=== PATIENT | male | born 1980 | race Caucasian/White ===

== ENCOUNTER 2016-09-18 01:48 | Day surgery (SDC) | payer OTHER ==
[~2016-09-18] VITALS: Ht 172.7 cm; Wt 140.7 kg
[2016-09-18] VITALS (17 sets, daily range): BP systolic 109–140; BP diastolic 47–73; PULSE 54–73; RESP 12–22; O2SAT 88–99
[~2016-09-18 01:48] MED LIST: HYG25 PO; LISI-571 PO; METO-272 PO; RIVA20TA PO
[2016-09-18] MEDS ORDERED: Succinylcholine Chloride 20 mg/mL 5 mL Inj ONE (01:49)
[2016-09-18] MEDS ORDERED: Protamine Sulfate 10 mg/mL 5 mL Inj ONE ×2 (01:49→15:49)
[2016-09-18] MEDS ORDERED: Neostigmine 1 mg/mL 10 mL Inj ONE (01:49)
[2016-09-18] MEDS ORDERED: Rocuronium 10 mg/mL 5 mL Inj ONE (01:49)
[2016-09-18] MEDS ORDERED: fentaNYL-PF 50 mCg/mL 2 mL Inj ONE (01:49)
[2016-09-18] MEDS ORDERED: Glycopyrrolate 0.2 MG/ML 1mL Inj ONE (01:49)
[2016-09-18] MEDS ORDERED: Ondansetron 2 mg/mL 2 mL Inj ONE (01:49)
[2016-09-18] MEDS ORDERED: EPHEDrine/NS 5 mg/mL 5 mL Syringe ONE (01:49)
[2016-09-18] MEDS ORDERED: Propofol 10,000 mCg/mL 20 mL Inj ONE (01:49)
[2016-09-18] MEDS ORDERED: Dexamethasone 4 mg/mL Inj ONE (01:49)
[2016-09-18] MEDS ORDERED: Lactated Ringer's 1,000 ML IV SCH (05:00)
[2016-09-18] MEDS ORDERED: Benzoc-Butamben-Tetraca Spray 20 Gm Spray TOPICAL PRN (07:15)
[2016-09-18 11:10] LABS: BASOPHILS % (AUTO) 0.4 % (0-3); EOSINOPHILS % (AUTO) 1.5 % (0-5); MONOCYTES % (AUTO) 7.5 % (4-12); Mean Corpuscular Hemoglobin 29.1 pg (27.0-35.0); Mean Corpuscular Volume 85.1 fL (81-100); NEUTROPHILS % (AUTO) 66.7 % (40-74); Platelet Count 198 bil/L (150-400)
--- NOTE | 2016-09-18 11:53 | NUR ---
ORACIO Admit to [facility] bed #7 at 1100 AM for NORRIS/Ablation. Father at bedside. Patient denies pain. HL X 2 placed and labs drawn. ECG 12 complete. Consent confirmed. History and medications reviewed. Patient states he took medications at 0700 with 1-2 ounces milk. MD and anesthesia notified. Pre-procedure teaching done and questions answered.
[2016-09-18] MEDS ORDERED: 0.9% Sodium Chloride 2,000 ML ONE (12:28)
[2016-09-18] MEDS ORDERED: Heparin 1,000 Unit/mL 10 mL Inj ONE ×2 (12:28→15:08)
[2016-09-18] MEDS ORDERED: Heparin 25,000 Unit/500 mL 0.45% NS Premix IV ONE (12:36)
[2016-09-18] MEDS ORDERED: Heparin 1,000 Units/500 mL NS Premix IV ONE ×2 (12:45→14:48)
[2016-09-18] MEDS ORDERED: Heparin 10,000 Unit/1,000 mL NS Premix IV ONE (13:37)
--- NOTE | 2016-09-18 15:16 | DRSVH ---
[facility] [address] [place] [address] Echocardiogram Report Name: CHRISTOPHER FOSTER Study Date: 09/18/2016 Height: 68 in Hospital Exam Location: [facility] Weight: 301 lb Gender: Male BSA: 2.4 m2 : 1980 Age: 35 yrs BP: 144/69 mmHg Reason For Study: Atiral Fibrillation Ordering Physician: Dr. Quoc Lucero Performed By: Zainab Godoy Referring Physician: GERARDO LUCERO Interpretation Summary The left ventricular ejection fraction is normal. No thrombus is detected in the left atrial appendage. There is trace mitral regurgitation. The aortic valve is trileaflet. The tricuspid valve is normal in structure and function. Procedure: A multifrequency, multiplane transesopheageal echocardiographic endoscope was inserted and manipulated in the standard fashion to achieve multiplane views. There were no complications. Left Ventricle: The left ventricular ejection fraction is normal. Atria: No thrombus is detected in the left atrial appendage. The interatrial septum is intact with no evidence for an atrial septal defect. Mitral Valve: The mitral valve is normal in structure and function. There is trace mitral regurgitation. Aortic Valve: The aortic valve is trileaflet. The aortic valve opens well. No aortic regurgitation is present. Tricuspid Valve: The tricuspid valve is normal in structure and function. There is trace tricuspid regurgitation. Pulmonic Valve: The pulmonic valve is normal in structure and function. There is trace pulmonic regurgitation. Electronically signed by: Weston Ace on Reading Physician:09/18/2016 03:15 PM
[2016-09-18] MEDS ORDERED: HYDROcodone-APAP 5-325 mg Tablet PO PRN (16:05)
[2016-09-18] MEDS ORDERED: Ondansetron 2 mg/mL 2 mL Inj IVPUSH PRN (16:05)
--- NOTE | 2016-09-18 16:07 | PCM.HPANE ---
Patient Data Date of Service: Sep 18, 2016 (1965) Surgeon Admitting Provider: Attending Provider:Enoc Lucero MD Primary Care Physician:Tere Other Provider:Michael Sol Anesthesia Reason for Visit A FIB Ht/WT & BMI Height (Feet): 5 Height (Inches): 8.00 Weight (Kilograms): 135.000 Body Mass Index 45.11 Allergies Coded Allergies: No Known Allergies (Unverified , 12/28/14) Past Anesthesia History Anesthesia History: Denies:: Abnormal Airway, Anesthesia Reactions, Difficult Intubation Diabetes History Hx Diabetes?: No MRSA MRSA: No Medications Reported Medications Rivaroxaban (Xarelto)20 Mg Vktiez73 Mg PO DAILY 09/17/16 Metoprolol Succinate ER 50 Mg Tab.er.24h50 Mg PO DAILY Ref 0 12/27/14 Lisinopril 5 Mg Tablet5 Mg PO DAILY #30 TABLET Ref 0 12/27/14 Chlorthalidone 25 Mg Stgzjr64 Mg PO DAILY #30 TABLET 12/27/14 Discontinued Reported Medications Dabigatran Etexilate Mesylate (Pradaxa)150 Mg Rwyykxh705 Mg PO BID 30 Days 12/27/14 Discontinued Scripts Flecainide Acetate 50 Mg Rvklow48 Mg PO BID #60 TABLET Ref 5 Prov:Delfino Miller PA-C 12/29/14 Omeprazole 40 Mg Capsule.dr40 Mg PO DAILY #30 CAPSULE Ref 0 Prov:Delfino Miller PA-C 12/29/14 History History of ENT Problems?: No HEENT History: Denies:: Abnormal Airway Difficult Intubation Denture Type: None Teeth Condition: Within Normal Limits Hx of Heart Problems?: Yes Cardiovascular History: Positive for:: Cardiac Surgery (ablation Dec 2013) Chest Pain (rare) Hypertension Irregular Heartbeat (paroxysmal atrial fibrillation) Denies:: AICD Abdominal Aortic Aneurism Atrial Fibrillation Congestive Heart Failure Coronary Artery Disease Edema Heart Murmur Pacemaker Peripheral Vascular Rheumatic Fever Thrombophlebitis Valvular Heart Disease Hx of Respiratory Problem?: Yes Respiratory History: Positive for:: Use of C-PAP Machine Denies:: Asthma COPD Chest Surgery Cough Dyspnea Emphysema Hemoptysis Oxygen Administration Pneumonia Pulmonary Embolism Tuberculosis Use of Inhalers / NEBS Hx Neurologic Problems?: No Hx of GI Problems?: No Hx of Problems?: No Male Hx: Denies:: Prostate Problems Hx Musculoskeletal Problems?: No Musculoskeletal History: Positive for:: Back Injury (low back spinal stenosis) Hx of Psycho/Social Problems?: No Hx Surgeries?: No ( ) Hx Any Other Health Problems?: Yes Other History: Positive for:: Hospitalization (GI bleed) Denies:: Cancer Thyroid Disease History Blood Transfusions: Positive for:: Accept Blood Products? Denies:: Blood Transfusions Hx Diabetes: No Hx Alcohol Use: NoHx Substance Use: No Smoking Status: Never Smoker Have You Smoked inLast 12 mo: No Stop/Bang Risk Assessment Category Category 1A: Patient has history of documented sleep apnea, and HAS NOT received any narcotic, sedative or anesthesia administration during this stay. Category 1B: Patient has history of documented sleep apnea, and HAS received any narcotic , sedative or anesthesia administration during this stay Category 2: Patient has SUSPECTED Obstructive Sleep Apnea, and HAS received any narcotic , sedative or anesthesia administration during this stay. Category 3: Patient has SUSPECTED Obstructive Sleep Apnea and HAS NOT received narcotic, sedative or anesthesia administration during this stay. Category 4: Outpatient in Procedural Areas with known sleep apnea or who screen positive for High Risk via the STOP/BANG questionnaire. Exam Exam Vital Signs Vital Signs Date Time Temp Pulse Resp B/P Pulse Ox O2 Delivery O2 Flow Rate FiO2 09/18/16 11:32 59 16 136/73 09/18/16 11:13 36.8 59 16 136/73 99 Room Air General Appearance: Alert, Oriented X3, Cooperative, No Acute Distress HEENT/AIRWAY: MP 3 Lungs: Clear to Auscultation Heart: Exam Unremarkable Meds/Labs/Diagnostics Labs Test 09/18/16 10:59 09/18/16 11:07 Sodium Level 139mEq/L (134-144) Potassium Level 3.9mEq/L (3.5-5.2) Chloride Level 100mEq/L (97-108) Carbon Dioxide Level 25mmol/L (18-29) Blood Urea Nitrogen 21mg/dL (6-20) Creatinine 0.68mg/dL (0.76-1.27) Estimat Glomerular Filtration Rate 143mL/min (>59) Glucose Level 99mg/dL (60-99) Calcium Level 9.7mg/dL (8.5-10.1) White Blood Count 6.8th/mm3 (3.8-10.1) Red Blood Count 4.78mil/mm3 (4.40-5.80) Hemoglobin 13.9g/dL (13.8-17.2) Hematocrit 40.7% (41.0-50.0) Mean Corpuscular Volume 85.1fL (81-100) Mean Corpuscular Hemoglobin 29.1pg (27.0-35.0) Mean Corpuscular Hemoglobin Concent 34.2% (32.0-37.0) Red Cell Distribution Width 12.9% (12.3-15.4) Platelet Count 198bil/L (150-400) Neutrophils (%) (Auto) 66.7% (40-74) Lymphocytes (%) (Auto) 23.6% (14-46) Monocytes (%) (Auto) 7.5% (4-12) Eosinophils (%) (Auto) 1.5% (0-5) Basophils (%) (Auto) 0.4% (0-3) Prothrombin Time 10.7sec (8.1-12.5) Prothromb Time International Ratio 1.00ratio Plan Impression Patient chart reviewed, patient interviewed and anesthestic plan with risks, benefits, and alternatives discussed, and informed consent obtained. ASA Physical Status: ASA3 Severe Disease Anesthetic Support Modalities: Arterial Line Anesthetic Plan: GA Bene/Risks/Altern/Consents: Yes HP Complete Prior to Induction: Yes Sundar Garcia MD Sep 18, 2016 16:07
--- NOTE | 2016-09-18 16:48 | PCM.ANEP1 ---
Post Anesthesia PACU Phase 1 Assessment Vital Signs Vital Signs Date Time Temp Pulse Resp B/P Pulse Ox O2 Delivery O2 Flow Rate FiO2 09/18/16 16:45 70 18 140/68 94 Nasal Cannula 2.00 09/18/16 16:40 36.9 73 12 127/64 99 simple 15.00 09/18/16 11:32 59 16 136/73 09/18/16 11:13 36.8 59 16 136/73 99 Room Air Anesthetic Administered: GA Level of Alertness: Sleepy, easy to arouse Pain: No Nausea or Vomiting: No CV Function & Hydration Stable: Yes Airway Device: Oxygen Delivery: Room Air Lungs: Clear to Auscultation Dermatome Level: Full Sensation PACU Phase 2 Assessment Complications: No Patient Instructions Provided: N/A Sundar Garcia MD Sep 18, 2016 16:48
--- NOTE | 2016-09-18 17:02 | PROCED ---
[address] [address] PROCEDURE NOTE PATIENT: CHRISTOPHER FOSTER : 1980 MR#: [id number] ADMIT: 09/18/2016 JOB ID: [id number] DATE OF SERVICE: 09/18/2016 PREOPERATIVE DIAGNOSIS(ES): Paroxysmal drug refractory atrial fibrillation. POSTOPERATIVE DIAGNOSIS(ES): Paroxysmal drug refractory atrial fibrillation. PROCEDURES PERFORMED: 1. Comprehensive electrophysiology study. 2. Three-dimensional electroanatomic mapping using the CARTO 3 system. 3. Intracardiac echocardiography. 4. Transseptal puncture x2. 5. Atrial fibrillation ablation with pulmonary vein isolation. 6. Barium esophagram. 7. Fluoroscopy. SURGEON: Locate Technician: Enoc Lucero MD, electrophysiology attending. ASSISTANTS: Delfino Miller PA-C, Fernandez Gil. ANESTHESIA: General endotracheal anesthesia was undertaken for this case. INDICATION: The patient is a pleasant 35-year-old man with a structurally normal heart who has undergone atrial fibrillation ablation two years ago for drug-refractory atrial fibrillation. He had recurrence recently and has required cardioversion. After discussion of the risks and benefits of catheter based mapping and ablation, he opted to proceed. PROCEDURAL DESCRIPTION: Following informed and signed consent, the patient was taken to the EP laboratory in the fasting nonsedated state where he was prepped and draped in the usual sterile fashion. He underwent a preprocedural transesophageal echocardiogram by Dr. Ace confirming lack of intracardiac thrombus. Please see separate dictated report for the details of that procedure. The bilateral groins were then infiltrated with 1% lidocaine; then, using modified Seldinger technique, two 8-[place] sheaths were inserted into the right femoral vein. A 7- and 10.5-[place] sheaths were inserted into the left femoral vein. Under fluoroscopic guidance a deflectable decapolar catheter was advanced to the coronary sinus, with the most proximal bipoles at the os of the sinus. An intracardiac echocardiography probe was advanced to the RV outflow tract and used to visualize the pericardial space. No effusion was noted. The ICE probe was pulled back into the right atrium and used to visualize the interatrial septum in assistance of transseptal puncture. Two transseptal punctures were performed in identical fashion. Each of the short 8-[place] sheaths was exchanged in the right groin over a long wire for a Gutierrez sheath dilator and [place] Brockenbrough needle. The entire system was used to engage the interatrial septum; then, under fluoroscopic, ICE, and pressure guidance, the septum was traversed twice to deploy the two Gutierrez sheaths into the left atrium. The patient was heparinized for a goal ACT of 350-400 seconds for the entire time we were in the left atrium following the first and preceding the 2nd transseptal puncture. Through the two Gutierrez sheaths, an F curve SmartTouch irrigated ablation catheter was passed, as was a 20 pole PentaRay catheter. A three-dimensional electroanatomic map of the left atrium and four pulmonary veins and left atrial appendage was created using the GetLikeminds 3 system. A voltage map was also created. Entrance and exit blocks were tested in the four pulmonary veins. The left upper pulmonary vein had reconnected. I encircled the ostium of this vein with ablation lesions, ultimately leading to entrance and exit block. The left lower pulmonary vein had one area of leakage along the kimberlyn that I ablated and achieved entrance and exit block. The right upper pulmonary vein was electrically isolated for both entrance and exit block. No ablation was performed around the vein. Finally, the right lower pulmonary vein had reconnected; I then encircled it with ablation lesions. A barium esophagram was performed prior to the onset of ablation and this was identified to be closest to the posterior aspect of the right lower pulmonary vein. Lower wattage, shorter duration kern were placed along the posterior aspect of the right lower pulmonary vein. Once entrance block was confirmed in all four pulmonary veins, I left the left atrium, turned off the patient's heparin, and reversed the heparin with protamine. A re-survey of the pericardial space showed no evidence of effusion. During the course of this study a comprehensive electrophysiology study was undertaken with right atrial pacing recording, right ventricular pacing recording, His bundle recording, and left atrial pacing recording via the coronary sinus catheter. All catheters and sheaths were removed. Manual pressure was held for hemostasis. The patient was transferred to the [facility] for monitoring and bed rest. COMPLICATIONS: None. ESTIMATED BLOOD LOSS: 20 mL. FINDINGS: 1. Baseline rhythm is sinus with an RR interval of 960 msec, CO 164 msec, QRS 101 msec, QT 385 msec. 2. Intracardiac intervals: AH interval 67 msec, HV 49 msec. 3. Retrograde conduction: Atrial activation was concentric. VA Wenckebach is seen at 340 msec. 4. Pulmonary vein isolation with entrance and exit block in all four pulmonary veins as described above. IMPRESSION: Successful redo pulmonary vein isolation procedure for recurrent drug-refractory paroxysmal atrial fibrillation. PLAN: 1. Bed rest x4 hours. 2. Resume Xarelto immediately once the patient is awake. 3. Flecainide 50 mg twice daily. 4. Continue beta blockade. 5. Protonix 40 mg p.o. daily x1 month. 6. Monitoring overnight. 7. Follow up with Delfino Miller PA-C in four weeks, and with me in three months. ATTENDING STATEMENT: Enoc Lucero MD, electrophysiology attending, was present for and supervised/performed all aspects of this procedure.
--- NOTE | 2016-09-18 20:33 | NUR ---
ORACIO Patient returned to [facility] bed #1 from slab inspector/NORRIS/AFib ablation at 1635. Fortune in place. Patient denies pain. Patient sleeping but wakes to voice. Bilateral venous groin punctures. Small bleed right groin managed with manual pressure and no further bleeding. No hematoma. Pedal pulses present. Right radial art removed. Taking PO and continues to rest comfortably.
--- NOTE | 2016-09-18 21:29 | NUR ---
ORACIO Patient transferred by bed to PCC room 2023 at 2115. Report to receiving RN.
[2016-09-19 03:38] VITALS: BP 123/66; PULSE 74; RESP 18; O2SAT 95
[2016-09-19 04:49] VITALS: PULSE 62
--- NOTE | 2016-09-19 06:34 | NUR ---
Admit from [facility] Received pt. ~2114 from ORACIO, report from MAURA Estrdaa. A/O x3, BAIRD. Up out of bed after recovery clearance, states no pain or symptoms. Bilateral venous groin and radial access site redressed areas, remains c/d/i, soft, no hematoma appreciated, denies pain. Radial site c/d/i. VSS. Resting intermittently and indicates no further needs at this time, safety check in place. Report given to on coming RN.
[2016-09-19 08:00] VITALS: PULSE 62
[2016-09-19] MEDS ORDERED: Pantoprazole 40 mg ER24 Tablet PO SCH (08:30)
[2016-09-19] MEDS ORDERED: MeTOProlol XL 50 mg ER24 Tablet PO SCH (08:30)
--- NOTE | 2016-09-19 09:15 | PCM.DIMED ---
Discharge Instructions Date of Service Sep 19, 2016 Dates of Hospitalization Discharge Diagnosis Discharge Diagnosis Paroxysmal Atrial Fibrillation Hypertension Sleep Apnea Diet Discharge Diet: Heart Healthy Activity Discharge Activity: Other (To prevent infection, do not sit in a bath tub, hot tub or pool for one week. To prevent bleeding, do not lift, push or pull more than 10 lbs for one week.) Call your provider Call your provider for: Fever or Chills, Bleeding, Excessive diarrhea, Weakness (unilateral) Patient Instructions Provider: Enoc Lucero MD Follow-up in: Other (Dec 30, 2016 at 11:30) Mid-level Provider (F9): Delfino Miller PA-C Follow-up with Mid-level in: 4 weeks ( at 4:20) Delfino Miller PA-C Sep 19, 2016 09:15
[2016-09-19] MEDS ORDERED: FLC50T PO (09:23)
[2016-09-19] MEDS ORDERED: POTA10TA38 PO (09:23)
[2016-09-19] MEDS ORDERED: PANT40TA3 PO (09:23)
[2016-09-19 09:25] VITALS: BP 138/66; PULSE 67; RESP 16; O2SAT 96
--- NOTE | 2016-09-19 09:48 | DIS ---
[address] [address] DISCHARGE SUMMARY PATIENT: CHRISTOPHER FOSTER : 1980 MR#: [id number] ADMIT: 09/18/2016 JOB ID: [id number] DIS: 09/19/2016 REASON FOR ADMISSION: Atrial fibrillation and ablation procedure. CHIEF COMPLAINT: Palpitations and fatigue. BRIEF HISTORY: The patient is a pleasant 35-year-old man with a structurally normal heart who underwent ablation for drug refractory paroxysmal atrial fibrillation two years ago. He has returned to clinic having recurrences of atrial fibrillation. A total of three episodes in recent weeks. Two of these episodes required a visit to the ED, and once he was cardioverted. He has restarted anticoagulation with Xarelto and wished to have a repeat ablation procedure. COURSE IN HOSPITAL: The patient was admitted to the [facility] and taken to the oven laborer, where he was placed under general anesthesia by the anesthesiologist. A NORRIS was performed and this showed no evidence of left atrial thrombus. The atrial fibrillation ablation procedure was undertaken and performed without incident. Afterward the right and left femoral sheaths were removed, hemostasis was obtained and he was awakened from general anesthesia. He was taken to the [facility] for recovery from sedation and then transferred up to the [facility] for overnight observation. The Fortune catheter was removed and he was able to void spontaneously. He had no bleeding from the femoral venous access sites and in the morning denied any pain or discomfort, shortness of breath or lightheadedness. He felt well for discharge home. DISPOSITION: The patient was discharged home in good condition with a follow up appointment at the [facility] office in one month. He will follow his heart healthy diet and take medications as prescribed. He was asked not to lift, push or pull more than 10 pounds for one week to prevent bleeding and to not sit in a hot tub, bathtub, or pool for one week to prevent infection. DISCHARGE MEDICATIONS: 1. Flecainide 50 mg b.i.d. 2. Pantoprazole 40 mg daily for one month. 3. Potassium chloride 10 mEq daily. 4. Chlorthalidone 50 mg daily. 5. Lisinopril 5 mg daily. 6. Metoprolol succinate 50 mg daily. 7. Rivaroxaban (Xarelto) 20 mg daily. FINAL DIAGNOSES: 1. Paroxysmal atrial fibrillation. 2. Hypertension. 3. Sleep apnea.
--- NOTE | 2016-09-19 11:26 | NUR ---
Discharge Pt left with father at 1100. Pt A&Ox3, vitals stable, and walked out to private car. All discharge instructions gone over and understood, all questions answered. Prescriptions sent to preferred pharmacy. IV and tele removed. Bilateral groin sites soft and non tender, bandage cdi. Radial soft, no swelling, no bruising, bandage cdi. When cleaning the pts room after leaving noticed he had left his discharge packet at the bedside, called and left a message and will leave discharge packet at front services agent. If no call will call patient again prior to leaving for my shift. Assistant Softball Coach aware.
== END 2016-09-19 11:23 | disposition home or self-care (01) ==
LOC: SOUO 01:48 → PCC 21:19 → SOUO 09-19 11:23
PROVIDERS: ATTEND Internal Medicine Cardiovascular Disease
DX: I48.0 Paroxysmal atrial fibrillation (principal); Z79.01 Long term (current) use of anticoagulants; Z79.899 Other long term (current) drug therapy; Z98.890 Other specified postprocedural states; I10 Essential (primary) hypertension; G47.33 Obstructive sleep apnea (adult) (pediatric)
CPT/HCPCS: 36415; 80048; 85025; 85610; 93005; 93613; 93656; 93662; C1732; C1759; C1769; C1894; C8925; J0330; J1100; J1644; J1885; J2405; J2710; J2720; J3010; J7030